=== PATIENT | male | born 1955 | race African-American/Black ===

== ENCOUNTER 2017-01-26 04:45 | Emergency (ER) | payer MEDICARE, MEDICAID ==
[~2017-01-26] VITALS: Ht 172.7 cm; Wt 79.4 kg
[~2017-01-26 04:45] MED LIST: ACETAMINOPHEN-1 EAC1 ORAL; ASPIRIN EC81 MG PO; COUMADIN2 MG PO; DOXYCYCLINE MO100 MG PO; FLOMAX0.4 MG ORAL; LIPITOR10 MG ORAL; NICODERM 21MG/241 EA TD; NITROGLYCERIN0.4 MG SL; NKM; PROAIR HFA8.5 GM INH; PROTONIX40 MG PO; SPIRIVA18 MCG INH; UNOBMED
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
[2017-01-26 05:21] LABS: BASOPHILS % (AUTO) 1.8 % (0.0-2.0); EOSINOPHILS % (AUTO) 2.7 % (0.0-3.0); LYMPHOCYTES % (AUTO) 25.4 % (20.0-45.0); MEAN CORPUSCULAR HEMOGLOBIN 32.2 PG (27.0-31.0); MEAN CORPUSCULAR HGB CONC 33.7 G/DL (32.0-36.0); MEAN CORPUSCULAR VOLUME 95 FL (80-99); MEAN PLATELET VOLUME 7.9 FL (6.5-10.1); MONOCYTES % (AUTO) 12.7 % (1.0-10.0); NEUTROPHILS % (AUTO) 57.5 % (45.0-75.0); PLATELET COUNT 208 K/UL (150-450); RED BLOOD COUNT 4.97 M/UL (4.70-6.10); RED CELL DISTRIBUTION WIDTH 11.7 % (11.6-14.8); WHITE BLOOD COUNT 7.7 K/UL (4.8-10.8)
[2017-01-26 05:26] VITALS: BP 123/92
[2017-01-26 05:37] LABS: ALANINE AMINOTRANSFERASE 13 U/L (3-41); ALBUMIN/GLOBULIN RATIO 0.9 (1.0-2.7); ASPARTATE AMINO TRANSFERASE 34 U/L (5-40); CALCIUM 7.6 mg/dL (8.6-10.2); CARBON DIOXIDE 25 mEQ/L (20-30); CREATININE 1.1 mg/dL (0.7-1.2); GLOMERULAR FILTRATION RATE > 60 mL/min (>60); HEMOLYSIS 28; TOTAL PROTEIN 5.9 g/dL (6.6-8.7)
[2017-01-26 05:43] LABS: TROPONIN I < 0.30 ng/mL (<=0.30)
[2017-01-26 05:48] LABS: ANION GAP 14 (5-15); CHLORIDE 106 mEQ/L (98-107); POTASSIUM 4.3 mEQ/L (3.4-4.9); SODIUM 145 mEQ/L (135-145)
[2017-01-26 05:50] LABS: CKMB 11.2 ng/mL (< 6.7)
[2017-01-26 07:03] VITALS: BP 112/80
[2017-01-26 07:17] LABS: CKMB 12.2 ng/mL (< 6.7); TROPONIN I < 0.30 ng/mL (<=0.30)
[2017-01-26 07:51] VITALS: BP 117/79
[2017-01-26 07:53] VITALS: BP 117/79
--- NOTE | 2017-01-26 10:45 | Diagnostic Imaging Report ---
Indication: Chest pain Technique: One view of the chest Comparison: none Findings: Inspiration is slightly suboptimal. There is resultant crowding of the bronchovascular markings. No definite acute infiltrates, or effusions. Size is upper limits of normal. Impression: Hypoventilatory exam. No definite acute process
== END 2017-01-26 07:58 | disposition home or self-care (01) ==
LOC: EDBD 04:45 → EMR 05:00
DX: R07.89 Other chest pain (principal); F14.10 Cocaine abuse, uncomplicated; J44.9 Chronic obstructive pulmonary disease, unspecified
CPT/HCPCS: 36415; 71010; 80053; 82550; 82553; 84484; 85025; 93005; 99283

== ENCOUNTER 2019-01-20 11:24 | Emergency (ER) | payer MEDICARE, OTHER ==
[~2019-01-20] VITALS: Ht 172.7 cm; Wt 77.1 kg
[2019-01-20 11:06] VITALS: BP 160/100
[~2019-01-20 11:24] MED LIST changes: +ASPIR 8181 MG ORAL; +ATORVASTATIN CA10 MG ORAL; +LOPRESSOR25 M1 ORAL; +NITROSTAT0.4 M1 SL; +PLAVIX75 MG ORAL
[2019-01-20] MEDS ORDERED: Methocarbamol 750mg tab ORAL ONE (11:30)
[2019-01-20] MEDS ORDERED: IBUPROFEN600 MG ORAL (13:04)
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
[2019-01-20 13:56] VITALS: BP 121/76
== END 2019-01-20 14:00 | disposition home or self-care (01) ==
LOC: EDBD 11:24 → EMR 13:55
DX: R07.9 Chest pain, unspecified (principal); S00.511A Abrasion of lip, initial encounter; F14.90 Cocaine use, unspecified, uncomplicated; J44.9 Chronic obstructive pulmonary disease, unspecified; Z91.041 Radiographic dye allergy status; V43.52XA Car driver injured in collision with other type car in traffic accident, initial encounter; Y92.410 Unspecified street and highway as the place of occurrence of the external cause; T14.8XXA Other injury of unspecified body region, initial encounter
CPT/HCPCS: 71045; 80307; 93005; 99283

== ENCOUNTER 2019-03-06 05:25 | Emergency (ER) | payer MEDICARE, OTHER ==
[~2019-03-06] VITALS: Ht 172.7 cm; Wt 83.9 kg
[~2019-03-06 05:25] MED LIST changes: +IBUPROFEN600 MG ORAL
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
[2019-03-06] MEDS ORDERED: Tetanus/Diptheria/Pertussis IM ONE (05:30)
[2019-03-06 05:45] VITALS: BP 146/87
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
--- NOTE | 2019-03-06 05:50 | NUR ---
ED Nurse Note: [employer] at the bedside.
--- NOTE | 2019-03-06 06:00 | NUR ---
ED Nurse Note: pt off to CT
[2019-03-06 06:31] LABS: BASOPHILS % (AUTO) 1.5 % (0.0-2.0); HEMATOCRIT 46.2 % (42.0-52.0); HEMOGLOBIN 15.7 G/DL (14.2-18.0); LYMPHOCYTES % (AUTO) 29.6 % (20.0-45.0); MEAN CORPUSCULAR VOLUME 95 FL (80-99); MONOCYTES % (AUTO) 10.6 % (1.0-10.0); NEUTROPHILS % (AUTO) 56.3 % (45.0-75.0); PLATELET COUNT 188 K/UL (150-450); RED BLOOD COUNT 4.85 M/UL (4.70-6.10); RED CELL DISTRIBUTION WIDTH 12.4 % (11.6-14.8); WHITE BLOOD COUNT 8.8 K/UL (4.8-10.8)
[2019-03-06 06:34] LABS: INR 0.9 (0.9-1.1)
[2019-03-06 06:36] LABS: ANION GAP 6 mmol/L (5-15); BLOOD UREA NITROGEN 14 mg/dL (7-18); CALCIUM 9.1 MG/DL (8.5-10.1); CARBON DIOXIDE 27 MMOL/L (21-32); CHLORIDE 107 MMOL/L (98-107); POTASSIUM 5.3 MMOL/L (3.5-5.1); SODIUM 140 MMOL/L (136-145)
[2019-03-06 06:43] LABS: ALANINE AMINOTRANSFERASE 20 U/L (12-78); ALBUMIN 3.1 G/DL (3.4-5.0); ALBUMIN/GLOBULIN RATIO 0.7 (1.0-2.7); ALKALINE PHOSPHATASE 89 U/L (46-116); ASPARTATE AMINO TRANSFERASE 44 U/L (15-37); BILIRUBIN,TOTAL 0.5 MG/DL (0.2-1.0)
[2019-03-06 06:45] VITALS: BP 146/87
--- NOTE | 2019-03-06 06:55 | NUR ---
ED Nurse Note: pt came back from CT, noted unequal pupil, bigger on leftside, ERMD notified regarding pt's condition.
[2019-03-06] MEDS ORDERED: levETIRAcetam 1,000mg/NS100ml 100 ML IVPB ONE (07:00)
[2019-03-06] MEDS ORDERED: ceFAZolin 1gm/50ml Premix 50 ML IV ONE (07:00)
--- NOTE | 2019-03-06 07:00 | NUR ---
ED Nurse Note: pt's at the bedside, unable to give any hx nor medication hx. pt cleaned and changed.
--- NOTE | 2019-03-06 07:05 | NUR ---
HAND-OFF: report given to JUN Urias and endorsed care.
[2019-03-06 07:30] VITALS: BP 153/78
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
--- NOTE | 2019-03-06 07:50 | NUR ---
ED Nurse Note: pt went down for maxillofacial CT scan with no changes of condition.
--- NOTE | 2019-03-06 08:10 | NUR ---
ED Nurse Note: pt came back from CT scan with no changes of condition.
--- NOTE | 2019-03-06 08:33 | NUR ---
ED Nurse Note: Transportation arrived.
--- NOTE | 2019-03-06 08:38 | NUR ---
ED Nurse Note: SAMIRA [place], [phone] came to interview pt but was not able to obtain information due to pt refusing to state.
--- NOTE | 2019-03-06 08:46 | NUR ---
ED Nurse Note: Report given to JUN Delarosa.
[2019-03-06 08:47] VITALS: BP 133/78
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
--- NOTE | 2019-03-06 08:49 | NUR ---
ED Nurse Note: pt left unit without changes of condition.
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
== END 2019-03-06 07:58 | disposition short-term general hospital (02) ==
LOC: EDBD 05:25 → EMR 07:00
DX: S09.90XA Unspecified injury of head, initial encounter (principal); S00.03XA Contusion of scalp, initial encounter; S02.91XA Unspecified fracture of skull, initial encounter for closed fracture; J32.2 Chronic ethmoidal sinusitis; Y09 Assault by unspecified means; I10 Essential (primary) hypertension; I25.10 Atherosclerotic heart disease of native coronary artery without angina pectoris; R47.81 Slurred speech; J44.9 Chronic obstructive pulmonary disease, unspecified; Z79.02 Long term (current) use of antithrombotics/antiplatelets; Z23 Encounter for immunization
CPT/HCPCS: 36415; 70450; 70486; 72125; 80053; 85025; 85610; 85730; 90471; 90715; 96365; 96375; 99291; G0480; J0690; J1953; 80329